=== PATIENT | male | born 1980 | race African-American/Black ===

== ENCOUNTER 2024-05-22 21:13 | Emergency (ER) | payer OTHER ==
[2024-05-22] MEDS ORDERED: ASPIRIN 81 MG CHEWABLE TABLET ONE (21:48)
[2024-05-22] MEDS ORDERED: NA CHLORIDE 0.9% 1,000 ML ONE (21:49)
[2024-05-22 21:57] LABS: Absolute Eosinophils 0.1 K/uL (0-0.5); Absolute Lymphocytes (CBC) 2.7 K/uL (0.7-4.9); Absolute Monocytes 0.5 K/uL (0.1-1.3); Absolute Neutrophil 2.8 K/uL (1.8-8.0); Basophils % 0.6 % (0-1.3); Eosinophils % 2.1 % (0-4.4); Hematocrit 41.4 % (39.6-49.0); Hemoglobin 13.7 g/dL (13.6-17.9); Lymphocytes % 43.3 % (15.3-44.8); MCH 27.9 pg (27.0-35.0); MCHC 33.1 g/dL (32.0-36.0); MCV 84.3 fL (80-100); MPV 9.5 fL (7.6-11.3); Monocytes % 8.6 % (3.3-12.3); Neutrophils % 45.4 % (41.7-73.7); Nucleated Red Blood Cells % 0.1 % (0-0); Platelets 194 thou/uL (152-406); RBC Red Blood Cell Count 4.91 M/uL (4.33-5.43); Red Cell Distribution Width 13.7 % (12.1-15.2)
[2024-05-22 22:18] LABS: ALT/SGPT 21 U/L (16-61); AST/SGOT 14 U/L (15-37); Albumin 1.9 g/dL (3.4-5.0); Alkaline Phosphatase 60 U/L (45-117); Anion Gap 9.3 mEq/L (5.0-15.0); BUN Blood Urea Nitrogen 6 mg/dL (7-18); Bicarbonate 18 mEq/L (21-32); Globulin 1.9 g/dL (2.3-3.5); Glomerular Filtration Rate 121 ml/min (=/>90); Glucose Level 72 mg/dL (74-106); Magnesium 1.2 mg/dL (1.6-2.4); NT PRO-BNP 18 pg/mL (<125); Protein, Total 3.8 g/dL (6.4-8.2); Sodium Level 149 mEq/L (136-145); Troponin High Sensitivity 13.2 pg/mL (<58.9)
[2024-05-22 22:18] LABS: PT Prothrombin Time 11.1 SECONDS (9.4-12.5); PTT, Activated Partial Thromb 31.1 SECONDS (24.3-36.9); Protime INR 0.99
[2024-05-22 22:19] LABS: Bilirubin Direct < 0.2 mg/dL (0-0.2); Bilirubin Total < 0.2 mg/dL (0.2-1.0)
[2024-05-22 22:20] LABS: Potassium 2.3 mEq/L (3.5-5.1)
--- NOTE | 2024-05-22 23:02 | RAD REPORT ---
EXAM DESCRIPTION: Mirela Single View05/22/2024 10:01 pm CLINICAL HISTORY: DISSECTION COMPARISON: No comparisons TECHNIQUE: Portable AP view of the chest. FINDINGS: Decreased inspiratory effort limits evaluation. Suspected mild medial upper lobe patchy op acities. No pneumothorax or effusion. The cardiomediastinal contours are unremarkable. IMPRESSION: Suspected mild medial upper lobe patchy opacities, may reflect early pneumonitis.
[2024-05-22 23:10] LABS: Absolute Eosinophils 0.1 K/uL (0-0.5); Absolute Lymphocytes (CBC) 1.4 K/uL (0.7-4.9); Absolute Monocytes 0.4 K/uL (0.1-1.3); Absolute Neutrophil 5.6 K/uL (1.8-8.0); Basophils % 0.5 % (0-1.3); Eosinophils % 0.7 % (0-4.4); Hematocrit 39.6 % (39.6-49.0); Hemoglobin 13.2 g/dL (13.6-17.9); Lymphocytes % 18.2 % (15.3-44.8); MCH 28.1 pg (27.0-35.0); MCHC 33.4 g/dL (32.0-36.0); MCV 84.1 fL (80-100); Monocytes % 4.9 % (3.3-12.3); Neutrophils % 75.7 % (41.7-73.7); Nucleated Red Blood Cells % 0.1 % (0-0); Platelets 183 thou/uL (152-406); RBC Red Blood Cell Count 4.71 M/uL (4.33-5.43); Red Cell Distribution Width 13.6 % (12.1-15.2)
[2024-05-22 23:18] LABS: Anion Gap 5.8 mEq/L (5.0-15.0); BUN Blood Urea Nitrogen 8 mg/dL (7-18); Bicarbonate 29 mEq/L (21-32); Glomerular Filtration Rate 79 ml/min (=/>90); Glucose Level 107 mg/dL (74-106); Potassium 3.8 mEq/L (3.5-5.1); Sodium Level 140 mEq/L (136-145)
[2024-05-22 23:47] LABS: ALT/SGPT 32 U/L (16-61); AST/SGOT 20 U/L (15-37); Albumin 3.1 g/dL (3.4-5.0); Albumin/Globulin Ratio 0.9 (1.1-1.8); Alkaline Phosphatase 102 U/L (45-117); Bilirubin Total 0.2 mg/dL (0.2-1.0); Globulin 3.4 g/dL (2.3-3.5); Protein, Total 6.5 g/dL (6.4-8.2)
[2024-05-22 23:56] LABS: Bilirubin Direct < 0.2 mg/dL (0-0.2)
[2024-05-22] MEDS ORDERED: LABETALOL 20 MG/4ML SYRINGE IV ONE (23:57)
[2024-05-22] MEDS ORDERED: LABETALOL HCL 100 MG TAB ONE (23:57)
[2024-05-22] MEDS ORDERED: AMLODIPINE 10 MG TAB ONE (23:57)
[2024-05-23 00:40] LABS: Urine Bilirubin NEGATIVE (Negative); Urine Blood Negative (Negative); Urine Clarity Clear (Clear); Urine Color Colorless (Yellow); Urine Glucose NEGATIVE (Negative); Urine Ketones NEGATIVE (Negative); Urine Microscopic Reflex YN NO UMIC; Urine Nitrite NEGATIVE (Negative); Urine Protein NEGATIVE (Negative); Urine Urobilinogen Normal (Normal); Urine pH 6.5 (5.0-7.0)
[2024-05-23 00:50] LABS: Barbiturates NEGATIVE (NEGATIVE); Benzodiazepines NEGATIVE (NEGATIVE); Cocaine NEGATIVE (NEGATIVE); METHAMPHETAM POSITIVE (NEGATIVE); Methadone NEGATIVE (NEGATIVE); Opiates NEGATIVE (NEGATIVE); Phencyclidine NEGATIVE (NEGATIVE); THC Cannibis POSITIVE (NEGATIVE)
--- NOTE | 2024-05-23 02:06 | EDPHYS ---
Physician Documentation [facility] Name: Glenn Lew Jr Age: 44 yrs Sex: Male : 1980 Arrival Date: 05/22/2024 Time: 21:13 Bed 20 Private MD: ED Physician Alex Gonzales HPI: 05/22 23:43 This 44 yrs old Black Male presents to ER via EMS with complaints of Chest Pain. gisselle 23:43 The patient or guardian reports chest pain that is located primarily in the substernal gisselle area, anterior chest wall, bilaterally. Onset: just prior to arrival. The pain does not radiate. Associated signs and symptoms: Pertinent positives: lightheadedness. The chest pain is described as aching. Modifying factors: The symptoms are alleviated by nothing. the symptoms are aggravated by nothing. Severity of pain: At its worst the pain was moderate in the emergency department the pain has improved. Historical: - Allergies: 21:34 No Known Allergies; cp4 - Immunization history:: Adult Immunizations unknown. - Infectious Disease History:: Denies. - Social history:: Smoking status: unknown. - Family history:: not pertinent. ROS: 23:43 Constitutional: Negative for fever, chills, and weight loss, Eyes: Negative for injury, gisselle pain, redness, and discharge, ENT: Negative for injury, pain, and discharge, Neck: Negative for injury, pain, and swelling, Respiratory: Negative for shortness of breath, cough, wheezing, and pleuritic chest pain, Abdomen/GI: Negative for abdominal pain, nausea, vomiting, diarrhea, and constipation, Back: Negative for injury and pain, : Negative for injury, bleeding, discharge, and swelling, MS/Extremity: Negative for injury and deformity, Skin: Negative for injury, rash, and discoloration, Neuro: Negative for headache, weakness, numbness, tingling, and seizure, Psych: Negative for depression, anxiety, suicide ideation, homicidal ideation, and hallucinations, Allergy/Immunology: Negative for hives, rash, and allergies, Endocrine: Negative for neck swelling, polydipsia, polyuria, polyphagia, and marked weight changes, Hematologic/Lymphatic: Negative for swollen nodes, abnormal bleeding, and unusual bruising, 23:43 Cardiovascular: Positive for chest pain, Exam: 23:43 Constitutional: This is a well developed, well nourished patient who is awake, alert, gisselle and in no acute distress. Head/Face: Normocephalic, atraumatic. Eyes: Pupils equal round and reactive to light, extra-ocular motions intact. Lids and lashes normal. Conjunctiva and sclera are non-icteric and not injected. Cornea within normal limits. Periorbital areas with no swelling, redness, or edema. ENT: Nares patent. No nasal discharge, no septal abnormalities noted. Tympanic membranes are normal and external auditory canals are clear. Oropharynx with no redness, swelling, or masses, exudates, or evidence of obstruction, uvula midline. Mucous membranes moist. Neck: Trachea midline, no thyromegaly or masses palpated, and no cervical lymphadenopathy. Supple, full range of motion without nuchal rigidity, or vertebral point tenderness. No Meningismus. Chest/axilla: Normal chest wall appearance and motion. Nontender with no deformity. No lesions are appreciated. Cardiovascular: Regular rate and rhythm with a normal S1 and S2. No gallops, murmurs, or rubs. Normal PMI, no JVD. No pulse deficits. Respiratory: Lungs have equal breath sounds bilaterally, clear to auscultation and percussion. No rales, rhonchi or wheezes noted. No increased work of breathing, no retractions or nasal flaring. Abdomen/GI: Soft, non-tender, with normal bowel sounds. No distension or tympany. No guarding or rebound. No evidence of tenderness throughout. Back: No spinal tenderness. No costovertebral tenderness. Full range of motion. Male : Normal genitalia with no discharge or lesions. Skin: Warm, dry with normal turgor. Normal color with no rashes, no lesions, and no evidence of cellulitis. MS/ Extremity: Pulses equal, no cyanosis. Neurovascular intact. Full, normal range of motion. Neuro: Awake and alert, GCS 15, oriented to person, place, time, and situation. Cranial nerves II-XII grossly intact. Motor strength 5/5 in all extremities. Sensory grossly intact. Cerebellar exam normal. Normal gait. Psych: Awake, alert, with orientation to person, place and time. Behavior, mood, and affect are within normal limits. 23:43 ECG was reviewed by the Attending Physician. 23:43 Musculoskeletal/extremity: DVT Exam: No signs of deep vein thrombosis. no pain, no swelling, no tenderness, negative Homans' sign noted on exam, no appreciated bluish discoloration, no erythema, no increased warmth, 05/23 00:54 ECG was reviewed by the Attending Physician. [facility] Vital Signs: 05/22 21:32 BP 193 / 126; Pulse 76; Resp 27; Temp 98.4; Pulse Ox 97% ; cp4 22:30 BP 190 / 124; Pulse 91; Resp 18; Pulse Ox 98% ; cp4 23:35 BP 176 / 111; Pulse 72; Resp 20; Pulse Ox 98% ; cp4 05/23 00:59 BP 148 / 99; Pulse 64; Resp 18; Pulse Ox 99% ; cp4 01:53 BP 152 / 99; Pulse 67; Resp 18; Pulse Ox 99% ; cp4 02:20 BP 162 / 98; Pulse 66; Resp 18; Pulse Ox 99% ; cp4 MDM: 05/22 21:29 Patient medically screened. gisselle 23:46 Differential diagnosis: abnormal EKG, acute myocardial infarction, acute pericarditis, gisselle anxiety, coronary artery disease chest wall pain, Cholelithiasis costochondritis, hiatal hernia, pancreatitis, peptic ulcer disease, pericarditis, pneumonia, pulmonary embolus, stable angina, thoracic aortic disection, unstable angina. HEART Score: History: Slightly Suspicious (0), ECG: Normal (0), Age: < or = 45 years (0), Risk Factors: 1 or 2 risk factors (1), [Hypertension] [Obesity] Troponin: < or = 1 x Normal Limit (0). The patient was given aspirin in the Emergency Department. TASHA Risk Score: 1 - Recent [<24hrs] Severe Angina, TOTAL SCORE = 1. Data reviewed: vital signs, nurses notes, EMS record, lab test result(s), EKG, radiologic studies, CT scan. Consideration of Admission/Observation Escalation of care including admission/observation considered. I considered the following discharge prescriptions or medication management in the emergency department Medications were administered in the Emergency Department. See DEC. 05/22 21: Order name: Basic Metabolic Panel; Complete Time: 23:01 [facility] 05/22 21:31 Order name: CBC with Diff; Complete Time: 23: [facility] 05/22 21: Order name: LFT's; Complete Time: 23: [facility] 05/22 21:31 Order name: Magnesium; Complete Time: 23:01 [facility] 05/22 21:31 Order name: NT PRO-BNP; Complete Time: 23:01 [facility] 05/22 21:31 Order name: PT-INR; Complete Time: 23:01 [facility] 05/22 21:31 Order name: Troponin HS; Complete Time: 23:01 [facility] 05/22 21:31 Order name: Acetaminophen; Complete Time: 23:01 [facility] 05/22 21:31 Order name: ETOH Level; Complete Time: 23:01 [facility] 05/22 21:31 Order name: Ptt, Activated; Complete Time: 23:01 [facility] 05/22 21:31 Order name: Salicylate; Complete Time: 23:01 [facility] 05/22 21:31 Order name: Urinalysis w/ reflexes; Complete Time: 00:54 [facility] 05/22 21:31 Order name: Urine Drug Screen; Complete Time: 00:54 [facility] 05/22 22:32 Order name: BMP; Complete Time: 00:18 cp4 05/22 22:32 Order name: CBC with Diff; Complete Time: 23:27 cp 05/22 23:37 Order name: Liver (Hepatic) Function; Complete Time: 00:18 EDMS 05/22 23:37 Order name: Magnesium; Complete Time: 00:18 EDMS 05/22 23:48 Order name: Troponin High Sensitivity: 1 am; Complete Time: 00:54 [facility] 05/22 21:31 Order name: XRAY Chest (1 view); Complete Time: 23:27 [facility] 05/22 23:30 Order name: CT Aorta for Dissection [facility] 05/22 23:43 Order name: CT Head Brain wo Cont [facility] 05/22 21:31 Order name: EKG; Complete Time: 21:32 [facility] 05/22 23:48 Order name: EKG; Complete Time: 23:49 [facility] 05/22 21:31 Order name: Cardiac monitoring; Complete Time: 21:39 [facility] 05/22 21:31 Order name: EKG - Nurse/Tech; Complete Time: 21:35 [facility] 05/22 21:31 Order name: IV Saline Lock; Complete Time: 21:35 [facility] 05/22 21:31 Order name: Labs collected and sent; Complete Time: 21:39 [facility] 05/22 21:31 Order name: O2 Per Protocol; Complete Time: 21:39 [facility] 08/20 21:31 Order name: O2 Sat Monitoring; Complete Time: 21:39 [facility] 05/22 21:31 Order name: Suicide Screening ([place]); Complete Time: 22:14 [facility] 05/22 21:59 Order name: Misc. Order: recollect Blue top; Complete Time: 22:13 vc1 05/22 22:20 Order name: Winifredc. Order: recollect green and lavendar; Complete Time: 22:33 vc1 05/22 23:30 Order name: Blood Pressure Recheck; Complete Time: 23:33 [facility] 05/22 23:48 Order name: EKG - Nurse/Tech; Complete Time: 00:13 [facility] EC:43 Rate is 84 beats/min. Rhythm is regular. QRS [place] is Normal. MO interval is normal. QRS gisselle interval is normal. QT interval is normal. No Q waves. T waves are Normal. No ST changes noted. Clinical impression: Normal ECG and No evidence of ischemia. Interpreted by me. Reviewed by me. 05/23 00:54 Rate is 72 beats/min. Rhythm is regular. MO interval is normal. QRS interval is normal. gisselle QT interval is normal. No Q waves. T waves are Normal. No ST changes noted. Clinical impression: Normal ECG and No evidence of ischemia. Interpreted by me. Reviewed by me. Administered Medications: 05/22 21:52 Drug: Aspirin PO Chewable Tablet 324 mg PO once; 81 mg tablets x 4 Route: PO; [facility] 05/23 02:30 Follow up: Response: No adverse reaction [facility] 05/22 21:52 Drug: NS 0.9% IV 1000 ml IV at 1 bolus Per protocol; 1000 mL bolus Route: IV; Rate: 1 cp4 bolus; Site: left antecubital; 22:55 Follow up: Response: No adverse reaction; IV Status: Completed infusion 4 05/23 00:13 Drug: Norvasc PO 10 mg PO once Route: PO; 4 02:21 Follow up: Response: No adverse reaction; Blood pressure is lowered 4 00:13 Drug: Labetalol IV 10 mg IV at per protocol once Route: IV; Rate: per protocol; Site: [facility] left antecubital; 00:13 Follow up: Response: No adverse reaction; Blood pressure is lowered; IV Status: cp4 Completed infusion 00:13 Drug: Labetalol PO 100 mg PO once Route: PO; 4 02:21 Follow up: Response: No adverse reaction; Blood pressure is lowered cp4 Disposition Summary: 05/23/24 02:05 Discharge Ordered Notes: Location: Home gisselle Problem: new gisselle Symptoms: have improved gisselle Condition: Stable gisselle Diagnosis - Chest pain, unspecified gisselle - Essential (primary) hypertension gisselle - Abuse of other non-psychoactive substances gisselle - Adverse effect of amphetamines gisselle Followup: gisselle - With: Private Physician - When: 1 - 2 days - Reason: Recheck today's complaints, Continuance of care, Re-evaluation by your physician Followup: gisselle - With: Arley Menjivar MD - When: 2 - 3 days - Reason: Recheck today's complaints, Re-evaluation by your physician Discharge Instructions: - Discharge Summary Sheet gisselle - Nonspecific Chest Pain, Adult gisselle - Hypertension, Adult gisselle - Nonspecific Chest Pain, Adult, [id number]-[id number] gisselle - Hypertension, Adult, Jwpt-wy-Tads gisselle - Methamphetamines Use Disorder gisselle - How to Take Your Blood Pressure, [id number] gisselle - Aspirin and Your Heart gisselle - Managing Your Hypertension gisselle Forms: - Medication Reconciliation Form gisselle - Antibiotic Education gisselle - Prescription Opioid Use gisselle - Patient Portal Instructions gisselle - Leadership Thank You Letter [facility] Prescriptions: - labetalol 100 mg Oral tablet - take 1 tablet ORAL route every 12 hours; 30 tablet; Refills: 0, Product gisselle Selection Permitted - Norvasc 10 mg Oral Tablet - take 1 tablet ORAL route once daily; 30 tablet; Refills: 0, Product Selection gisselle Permitted Signatures: Dispatcher [employer] Alex Pichardo MD MD cha Calcote, Vanessa RN RN vc1 Luisana Teresa cp4 Corrections: (The following items were deleted from the chart) 05/22 21:32 21:32 BASIC METABOLIC PANEL+C.LAB.BRZ ordered. EDMS EDMS 21:32 21:32 CBC+H.LAB.BRZ ordered. EDMS EDMS 21:32 21:32 HEPATIC FUNCTION+C.LAB.BRZ ordered. EDMS EDMS 21:32 21:32 MAGNESIUM+C.LAB.BRZ ordered. EDMS EDMS 21:32 21:32 PROBNP+C.LAB.BRZ ordered. EDMS EDMS 21:32 21:32 PROTIME (+INR)+COAG.LAB.BRZ ordered. EDMS EDMS 21:32 21:32 Troponin High Sensitivity+C.LAB.BRZ ordered. EDMS EDMS 21:32 21:32 ACETAMINOPHEN+C.LAB.BRZ ordered. EDMS EDMS 21:32 21:32 ETHANOL+C.LAB.BRZ ordered. EDMS EDMS 21:32 21:32 PTT, ACTIVATED+COAG.LAB.BRZ ordered. EDMS EDMS 21:32 21:32 SALICYLATE+C.LAB.BRZ ordered. EDMS EDMS 21:32 21:32 Urinalysis+U.LAB.BRZ ordered. EDMS EDMS 21:32 21:32 URINE DRUG SCREEN+UC.LAB.BRZ ordered. EDMS EDMS 23:36 23:29 HEPATIC FUNCTION+C.LAB.BRZ ordered. EDMS EDMS 23:36 23:29 MAGNESIUM+C.LAB.BRZ ordered. EDMS EDMS
--- NOTE | 2024-05-23 02:06 | ER ---
Nurse's Notes [facility] Name: Glenn Lew Jr Age: 44 yrs Sex: Male : 1980 Arrival Date: 05/22/2024 Time: 21:13 Bed 20 Private MD: Diagnosis: Chest pain, unspecified;Essential (primary) hypertension;Abuse of other non-psychoactive substances;Adverse effect of amphetamines Presentation: 05/22 21:32 Chief complaint: EMS states: chest pain that started after patient arrived to intermediate. cp4 Patient in law enforcement custody. Coronavirus screen: Vaccine status: Patient reports being unvaccinated. Client denies travel out of the [place] in the last 14 days. At this time, the client does not indicate any symptoms associated with coronavirus-19. Ebola Screen: Patient negative for fever greater than or equal to 101.5 degrees Fahrenheit, and additional compatible Ebola Virus Disease symptoms Patient denies exposure to infectious person. Patient denies travel to an Ebola-affected area in the 21 days before illness onset. No symptoms or risks identified at this time. Initial Sepsis Screen: Does the patient meet any 2 criteria? RR > 20 per min. No. Patient's initial sepsis screen is negative. Does the patient have a suspected source of infection? No. Patient's initial sepsis screen is negative. Risk Assessment: Do you want to hurt yourself or someone else? Patient reports no desire to harm self or others. Onset of symptoms was May 22, 2024. 21:32 Method Of Arrival: EMS: [facility] 21:32 Acuity: [place] 3 cp4 Triage Assessment: 21:34 General: Appears in no apparent distress. uncomfortable, Behavior is agitated, anxious, cp4 uncooperative. Pain: Complains of pain in chest. EENT: No signs and/or symptoms were reported regarding the EENT system. Neuro: Level of Consciousness is awake, alert, Oriented to person, place, time, situation. Cardiovascular: Reports chest pain, Rhythm is sinus rhythm. Respiratory: Airway is patent Respiratory effort is even, unlabored. GI: No signs and/or symptoms were reported involving the gastrointestinal system. : No signs and/or symptoms were reported regarding the genitourinary system. Derm: No signs and/or symptoms reported regarding the dermatologic system. Musculoskeletal: No signs and/or symptoms reported regarding the musculoskeletal system. Historical: - Allergies: 21:34 No Known Allergies; cp4 - Immunization history:: Adult Immunizations unknown. - Infectious Disease History:: Denies. - Social history:: Smoking status: unknown. - Family history:: not pertinent. Screenin:37 [facility] ED Fall Risk Assessment (Adult) History of falling in the last 3 months, cp4 including since admission No falls in past 3 months (0 pts) Confusion or Disorientation No (0 pts) Intoxicated or Sedated No (0 pts) Impaired Gait No (0 pts) Mobility Assist Device Used No (0 pt) Altered Elimination No (0 pt) Score/Fall Risk Level 0 - 2 = Low Risk Oriented to surroundings, Maintained a safe environment, Assessed \T\ reinforced patient's understanding of fall precautions, Hourly rounding (assess needs \T\ fall precautionary measures) done. Abuse screen: Denies threats or abuse. Nutritional screening: No deficits noted. Tuberculosis screening: No symptoms or risk factors identified. Assessment: 21:37 Reassessment: No changes from previously documented assessment. Pain: Pain does not cp4 radiate. Pain began 30 min ago. 22:54 Reassessment: Patient refuses to be still while vital signs are being taken. Provider cp4 notified. 23:00 Reassessment: Patient appears in no apparent distress at this time. Patient and/or cp4 family updated on plan of care and expected duration. Pain level reassessed. Patient is alert, oriented x 3, equal unlabored respirations, skin warm/dry/pink. 05/23 00:00 Reassessment: Patient appears in no apparent distress at this time. Patient and/or cp4 family updated on plan of care and expected duration. Pain level reassessed. Patient is alert, oriented x 3, equal unlabored respirations, skin warm/dry/pink. 01:00 Reassessment: Patient appears in no apparent distress at this time. Patient and/or cp4 family updated on plan of care and expected duration. Pain level reassessed. Patient is alert, oriented x 3, equal unlabored respirations, skin warm/dry/pink. 02:00 Reassessment: Patient appears in no apparent distress at this time. Patient and/or cp4 family updated on plan of care and expected duration. Pain level reassessed. Patient is alert, oriented x 3, equal unlabored respirations, skin warm/dry/pink. Vital Signs: 05/22 21:32 BP 193 / 126; Pulse 76; Resp 27; Temp 98.4; Pulse Ox 97% ; cp4 22:30 BP 190 / 124; Pulse 91; Resp 18; Pulse Ox 98% ; cp4 23:35 BP 176 / 111; Pulse 72; Resp 20; Pulse Ox 98% ; cp4 05/23 00:59 BP 148 / 99; Pulse 64; Resp 18; Pulse Ox 99% ; cp4 01:53 BP 152 / 99; Pulse 67; Resp 18; Pulse Ox 99% ; cp4 02:20 BP 162 / 98; Pulse 66; Resp 18; Pulse Ox 99% ; cp4 ED Course: 05/22 21:14 Patient arrived in ED. [email or web address] 21:26 Luisana Teresa is Primary Nurse. cp4 21:29 Alex Gonzales MD is Attending Physician. gisselle 21:34 Triage completed. cp4 21:34 Arm band placed on right wrist. Patient placed in an exam room, on a stretcher. cp4 21:37 Bed in low position. Call light in reach. Side rails up X2. Client placed on continuous cp4 cardiac and pulse oximetry monitoring. NIBP monitoring applied. groundwater monitoring technician on. Pulse ox on. 21:37 Maintain EMS IV. Dressing intact. Good blood return noted. Site clean \T\ dry. Gauge \T\ cp 4 site: 20G LAC. Patient maintains SpO2 saturation greater than 95% on room air. 21:51 Initial lab(s) drawn, by me, sent to lab. vk 22:02 XRAY Chest (1 view) In Process Unspecified. EDMS 05/23 00:53 CT Aorta for Dissection In Process Unspecified. EDMS 00:53 CT Head Brain wo Cont In Process Unspecified. EDMS 02:05 Alrey Menjivar MD is Referral Physician. gisselle 02:28 Provided Education on: hypertension and chest pain. cp4 02:28 No provider procedures requiring assistance completed. intact, bleeding controlled, No cp4 redness/swelling at site. Pressure dressing applied. Administered Medications: 05/22 21:52 Drug: Aspirin PO Chewable Tablet 324 mg PO once; 81 mg tablets x 4 Route: PO; cp4 05/23 02:30 Follow up: Response: No adverse reaction cp4 05/22 21:52 Drug: NS 0.9% IV 1000 ml IV at 1 bolus Per protocol; 1000 mL bolus Route: IV; Rate: 1 cp4 bolus; Site: left antecubital; 22:55 Follow up: Response: No adverse reaction; IV Status: Completed infusion cp4 05/23 00:13 Drug: Norvasc PO 10 mg PO once Route: PO; cp4 02:21 Follow up: Response: No adverse reaction; Blood pressure is lowered cp4 00:13 Drug: Labetalol IV 10 mg IV at per protocol once Route: IV; Rate: per protocol; Site: cp4 left antecubital; 00:13 Follow up: Response: No adverse reaction; Blood pressure is lowered; IV Status: cp4 Completed infusion 00:13 Drug: Labetalol PO 100 mg PO once Route: PO; cp4 02:21 Follow up: Response: No adverse reaction; Blood pressure is lowered cp4 Medication: 05/22 21:37 VIS not applicable for this client. cp4 Outcome: 05/23 02:05 Discharge ordered by MD. pitts 02:28 Discharged to Law Enforcement cp4 02:28 Condition: stable 02:28 Discharge instructions given to police, Instructed on discharge instructions, follow up and referral plans. medication usage, Demonstrated understanding of instructions, follow-up care, medications, Prescriptions given X 2, 02:31 Patient left the ED. cp4 Signatures: Dispatcher [employer] Alex Pichardo MD MD cha Jeffries, Jennifer [email or web address] Potter, Christina cp4 Manisha Rizzo
[2024-05-23 02:35] VITALS: TEMP 98.4
[2024-05-23 02:39] VITALS: O2SAT 99
[2024-05-23 02:41] VITALS: BP 162/98
--- NOTE | 2024-05-23 16:56 | EKG ---
Test Date: 2024-05-22 Test Time: 21:15:14 Director Skills: CESAR MEASUREMENT RESULTS: Intervals: Rate: 84 VA: 132 QRSD: 84 QT: 402 QTc: 475 [place]: P: 64 VA: 132 QRS: 56 T: 46 INTERPRETIVE STATEMENTS: Normal sinus rhythm Normal ECG No previous ECG available for comparison Electronically Signed On 05-23-24 16:55:40 CDT by Jarred Franklin
--- NOTE | 2024-05-23 16:56 | EKG ---
Test Date: 2024-05-23 Test Time: 00:07:05 Captain Assistant: JAY MEASUREMENT RESULTS: Intervals: Rate: 72 NM: 146 QRSD: 94 QT: 420 QTc: 459 [place]: P: 66 NM: 146 QRS: 59 T: 48 INTERPRETIVE STATEMENTS: Normal sinus rhythm Normal ECG No previous ECG available for comparison Electronically Signed On 05-23-24 16:54:42 CDT by Jarred Franklin
--- NOTE | 2024-05-23 18:48 | RAD REPORT ---
EXAM DESCRIPTION: CT - Head Brain Wo Cont - 05/23/2024 6:31 am CLINICAL HISTORY: The patient is 44 years old and is Male; Headache. TECHNIQUE: Axial computed tomography images of the head/brain without intravenous contrast. Sagitt al and coronal reformatted images were created and reviewed. This CT exam was performed using one o r more of the following dose reduction techniques: automated exposure control, adjustment of the mA and/or kV according to patient size, and/or use of iterative reconstruction technique. DLP: 3005 mGy*cm COMPARISON: None. FINDINGS: BRAIN: Unremarkable. No hemorrhage. No significant white matter disease. No edema. VENTRICLES: Unremarkable. No ventriculomegaly. BONES/JOINTS: Unremarkable. No acute fracture. SOFT TISSUES: Unremarkable. SINUSES: Unremarkable as visualized. No acute sinusitis. MASTOID AIR CELLS: Unremarkable as visualized. No mastoid effusion. IMPRESSION: No acute intracranial abnormality. Electronically signed by: Dewey Alvarenga DO 05/23/2024 01:30 AM CDT RP 9 Due to temporary technical issues with the PACS/Fluency reporting system, reports are being signed by the in house radiologists without review as a courtesy to insure prompt reporting. The interpreting radiologist is fully responsible for the content of the report.
--- NOTE | 2024-05-23 20:55 | RAD REPORT ---
EXAM DESCRIPTION: CT - Angio Aorta For Dissection - 05/23/2024 6:31 am CLINICAL HISTORY: 44 years Male Abd pain;Dissection TECHNIQUE: Following the administration of intravenous contrast, multiple high-resolution axial imag es of the chest, abdomen and pelvis were performed followed by sagittal and coronal reconstructed kristina ges. Coronal and sagittal MIP images were also performed.The CT study is performed according to ALARA (as low as reasonably achievable) or ALARA/IMAGE GENTLY, with automatic adjustment of mA and/or kV a ccording to patient size. Performed on: 05/23/2024 at 12:50 AM COMPARISON: No prior studies were available for comparison. FINDINGS: CTA CHEST: There is suboptimal contrast opacification of the pulmonary arteries on this examination. This stud y was optimized for evaluation of the thoracic aorta. The visualized pulmonary artery trunk and main pulmonary arteries enhance homogeneously without intra-arterial filling defects. Evaluation of the se gmental and subsegmental pulmonary artery branches is limited for evaluation of pulmonary emboli. The thoracic aorta is normal in caliber and contour without evidence of aneurysm or dissection. The prox imal great vessels are patent at the origins. There is a conventional three-vessel arch. The lungs are well expanded. There is bibasilar dependent opacification likely due to fibrosis and/or atelectasis. No dense airspace consolidation is identified. There are no pleural effusions. There is no pneumothorax. The central airways are patent. The heart is normal in size. There is no pericardial effusion. There is no evidence of hilar, mediastinal or axillary lymphadenopathy. No acute osseous abnormality is identified. Non-Angiographic Findings: The visualized thyroid gland is unremarkable.. CTA ABDOMEN AND PELVIS: Liver: Liver measures approximately 18 cm in craniocaudal dimension. There is a small focal area of h epatic parenchymal enhancement in the left hepatic lobe possibly representing a small arterioportal s martel (series 501, image 69 and series 504, image 71). Liver attenuation is otherwise grossly within n ormal limits. Spleen: The spleen is normal is size, configuration and attenuation. There is heterogeneous attenuati on of the likely due to the arterial phase of contrast-enhancement. Gallbladder and bile duct: The gallbladder is partially distended and is grossly unremarkable. Ther e is no biliary ductal dilatation. Pancreas: The pancreas is grossly normal in size and configuration. Adrenal Glands: There is mild fullness of the left adrenal gland which may be due to adrenal hyperpla willi. The right adrenal gland is grossly within normal limits. Kidneys: The kidneys are normal in size and configuration. There is no evidence of hydronephrosis. Th ere is no evidence of nephrolithiasis. No definite solid or cystic renal mass lesions are identified. Stomach: The stomach is grossly normal. There is no definite hiatal hernia. Bowel: The bowel gas pattern is non specific and non obstructive. There is occasional colonic diverti culosis. Appendix: The appendix is normal. Free air: There is no evidence of free air. Free fluid: There is no evidence of free fluid. Vasculature: The aorta is normal in caliber and contour. The inferior vena cava is grossly unremarkab le. There are mild atherosclerotic calcifications along the infrarenal abdominal aorta and common chantal ac arteries. There is no evidence of abdominal aortic aneurysm or aortic dissection. The celiac arter y and superior and inferior mesenteric arteries as well as the bilateral renal arteries are patent an d are normal in caliber and contour. The common iliac arteries are patent bilaterally as are the inte rnal and external iliac arteries and common femoral arteries and proximal superficial femoral arterie s. There are mild atherosclerotic calcifications along the common iliac arteries bilaterally. Lymphadenopathy: No pathologic lymphadenopathy is identified. Bladder: The bladder is well distended and smooth in contour. Reproductive: The prostate gland is grossly within normal limits. Bones: No acute osseous abnormalities are identified. There are mild degenerative changes of the lowe r lumbar spine. Soft tissues: No focal soft tissue abnormalities are identified. IMPRESSION: CTA CHEST: 1. Suboptimal contrast opacification of the pulmonary arteries on this examination. This study was optimized for evaluation of the thoracic aorta. The visualized pulmonary artery trunk and main pulmon lizy arteries enhance homogeneously without intra-arterial filling defects. Evaluation of the segmenta l and subsegmental pulmonary artery branches is limited for evaluation of pulmonary emboli. 2. No evidence of thoracic aortic aneurysm or aortic dissection. 3. Bibasilar dependent opacification likely due to fibrosis and/or atelectasis. CTA ABDOMEN AND PELVIS: 1. No evidence of acute intra-abdominal or intrapelvic pathology. 2. Occasional colonic diverticulosis. 3. Suspect small arterioportal shunt in the left hepatic lobe. 4. Suspect mild left adrenal hyperplasia. 5. No evidence of abdominal aortic aneurysm or aortic dissection. There are mild atherosclerotic ca lcifications along the infrarenal abdominal aorta and common iliac arteries. Otherwise, normal CTA of the abdomen and pelvis. Electronically signed by: Juliet Mccarty DO 05/23/2024 01:47 AM CDT RP Due to temporary technical issues with the PACS/Fluency reporting system, reports are being signed by the in house radiologists without review as a courtesy to insure prompt reporting. The interpreting radiologist is fully responsible for the content of the report.
== END 2024-05-23 02:31 | disposition home or self-care (01) ==
LOC: ER 21:13
DX: R07.9 Chest pain, unspecified (principal); I10 Essential (primary) hypertension; F55.8 Abuse of other non-psychoactive substances; T43.625A Adverse effect of amphetamines, initial encounter
CPT/HCPCS: 93005 ×2; 85025 ×2; 80048 ×2; 36415; 83735 ×2; 85610; 80076 ×2; 85730; 81003; 84484 ×2; 83880; 80307; 70450; 71275; 74175; 71045; 80143; 80179; 82077; Q9967; J7030